=== PATIENT | female | born 1965 | race Caucasian/White ===

== ENCOUNTER 2016-09-04 09:58 | Emergency (ER) | payer BC, OTHER ==
[2016-09-04 11:04] VITALS: BP 122/78
--- NOTE | 2016-09-04 11:28 | UC ---
Complaint Female HPI - HPI Summary HPI Summary: PAINFUL AND FREQUENT URINATION FOR THE PAST 3 DAYS. TODAY PT HAD OBVIOUS BLOOD IN URINE WITH A FEW CLOTS. LOW ABD CRAMPING AND PRESURE. NO FEVER OR BACK PAIN. she has had many UTIs in past but none in many years. sx are c/w previous. no f/c/body aches/n/v. no LBP. mom had kidney stones, she has not. Here with dtr. she is on low dose ASA for cardio and stroke prevention. - History Of Current Complaint Chief Complaint: UCGU Stated Complaint: URINARY COMPLAINT Time Seen by Provider: 09/04/16 11:11 Hx Last Menstrual Period: 08/17/16 - Allergies/Home Medications Allergies/Adverse Reactions: Allergies Allergy/AdvReac Type Severity Reaction Status Date / Time Doxycycline Allergy Severe Hives Verified 09/04/16 10:50 Home Medications: Home Medications Albiglutide [Tanzeum] 30 mg SC WEEKLY 09/04/16 [History Confirmed 09/04/16] Glimepiride [Amaryl] 4 mg PO DAILY 09/04/16 [History Confirmed 09/04/16] Meclizine HCl [Meclizine 25] 12.5 mg PO TID PRN 09/04/16 [History Confirmed ] Omeprazole CAP* [Prilosec CAP* 20 MG] 20 mg PO DAILY 09/04/16 [History Confirmed 09/04/16] Otc Urinary Symptom Med PRN 09/04/16 [History] metFORMIN* [Glucophage*] 500 mg PO BID 09/04/16 [History Confirmed 09/04/16] PMH/Surg Hx/FS Hx/Imm Hx Previously Healthy: Yes Endocrine History Of: Reports: Diabetes - IDDM Cardiovascular History Of: Reports: Hypertension Respiratory History Of: Reports: Asthma - as child - Surgical History Surgical History: Yes Surgery Procedure, Year, and Place: Gallbladder removed,Tubal ligation. CARPAL TUNNEL REPAIR, BILATERAL - Family History Known Family History: Positive: Cardiac Disease, Diabetes, Other - mom with kidney stones - Social History Alcohol Use: Rare Substance Use Type: None Smoking Status (MU): Never Smoked Tobacco - Immunization History Most Recent Influenza Vaccination: not this season Review of Systems Constitutional: Negative Skin: Negative Eyes: Negative ENT: Negative Respiratory: Negative Cardiovascular: Negative Gastrointestinal: Negative Genitourinary: Dysuria, Hematuria, Frequency, Urgency Motor: Negative Neurovascular: Negative Musculoskeletal: Negative Neurological: Negative Psychological: Negative All Other Systems Reviewed And Are Negative: Yes Physical Exam Triage Information Reviewed: Yes Appearance: Well-Appearing, No Pain Distress, Well-Nourished Vital Signs: Initial Vital Signs Temp 98 F 09/04/16 10:55 Pulse 95 09/04/16 10:55 Resp 16 09/04/16 10:55 BP 122/78 09/04/16 10:55 Pulse Ox 98 09/04/16 10:55 Vital Signs Reviewed: Yes Eye Exam: Normal ENT Exam: Normal Neck exam: Normal Neck: Positive: Supple, Nontender, No Lymphadenopathy Respiratory Exam: Normal Respiratory: Positive: Lungs clear, Normal breath sounds, No respiratory distress Cardiovascular Exam: Normal Cardiovascular: Positive: RRR, No Murmur, Pulses Normal, Brisk Capillary Refill Abdominal Exam: Normal Abdomen Description: Positive: Soft, Other: - mild suprapubic tenderness, non tender elsewhere.. Negative: CVA Tenderness (R), CVA Tenderness (L) Bowel Sounds: Positive: Present Musculoskeletal Exam: Normal Neurological Exam: Normal Psychological Exam: Normal Skin Exam: Normal Complaint Female Dx - Course Course Of Treatment: I stressed the importance of f/u with her especially for the hematuria to be certain this clears to acceptable levels. She understood me well adn is agreeable with plan. - Differential Dx/Diagnosis Differential Diagnosis/HQI/PQRI: Urinary Tract Infection, Other - kidney stones , hematuria Provider Diagnoses: UTI, hematuria Discharge - Discharge Plan Condition: Stable Disposition: HOME Prescriptions: Sulfamethox/Trimethoprim DS* [Bactrim DS 800/160 TAB*] 1 tab PO BID #14 tab Patient Education Materials: Urinary Tract Infection in Women (ED), Hematuria ( ED) Referrals: Cabrera Burgos PA [Primary Care Provider] - Additional Instructions: Make sure that you give a urine sample in [facility] [place] [facility] to be certain that the blood has resolved even microscopically. You should go to ER if you develop fevers, chills, body aches or worsening blood. You should take a probiotic while you are on antibiotics as well. Increase water intake. watch blood sugars closely as they can increase dramatically with any infection. You should go to ER if sugars >400.
== END 2016-09-04 11:44 | disposition home or self-care (01) ==
LOC: UCCORT 09:58
DX: N39.0 Urinary tract infection, site not specified (principal); E11.9 Type 2 diabetes mellitus without complications; Z79.82 Long term (current) use of aspirin; Z88.1 Allergy status to other antibiotic agents
CPT/HCPCS: 87086; 99201; G0463